=== PATIENT | male | born 1985 | race Caucasian/White ===

== ENCOUNTER 2023-09-03 11:26 | Emergency (ER) | payer OTHER, SELFPAY ==
[2023-09-03 11:31] VITALS: BP 154/96
[2023-09-03 12:10] VITALS: BMI 26.5
--- NOTE | 2023-09-03 14:18 | ED.GENMED ---
History of Present Illness
General
Chief Complaint: Skin Problem
Source: patient
Time Seen by Provider: 09/03/23 13:36
Travel History
Have you had any contact with someone who has COVID-19?: No
Do you have any symptoms of coronavirus? Fever > 100 degrees, chills, cough, shortness of breath, sore throat, loss of taste or smell, muscle aches, or headache?: No
History of Present Illness
History of Present Illness:
37-year-old male presenting emergency department for evaluation of a left-sided facial abscess that has been present for the last 3 days. Patient initially went to urgent care and was prescribed Bactrim which she has been taking and he states that
he felt that symptoms were improving. He saw his primary care provider this morning who recommended patient come to the ER for further evaluation and treatment of the abscess. Patient states his main concern is he has had MRSA in the past that
required admission and IV antibiotics. He denies any fevers, chills, rigors or any other concerns at this time. Patient has been on Bactrim for the 3 days.
Past History
Past History
ED Past Medical History: GERD and Other ( Polysubstance drug abuse)
ED Past Surgical History: Orthopedic (Left wrist surgery)
Social History
Tobacco: Non-smoker
Alcohol: Occasional
Drug: Marijuana and IVDA (Methamphetamines)
Personal: Single
Living: alone
Employment: Employed
Family History
Family History: Other (Noncontributory)
Review of Systems
Review of Systems
All Other Systems: ROS reviewed and negative except as documented in HPI and ROS
Phy Exam
Physical Exam
Physical Exam:
GENERAL: Alert , in no apparent distress
EYE: conjunctiva clear
Head: Normocephalic atraumatic
NECK: Supple, 1-1/2 cm circular abscess towards the body of the mandible on the left. Fluctuant with overlying erythema, very small induration along the outer ring of the abscess
ENT: mmm.
LUNGS: no acute respiratory distress
NEUROLOGICAL: Alert and oriented
SKIN: Warm and dry, skin intact.
MUSCULOSKELETAL: well perfused.
PSYCH: Normal and appropriate interaction.
Scores
Heart Failure Risk
Heart Failure Risk Score: Not Applicable
Heart Score for Chest Pain Patients
STEMI patient?: Not applicable
Withdrawal Assessment of Alcohol
Withdrawal Assessment Completed?: Not applicable
Course
Orders/Labs/Results
Orders:
Orders
09/03/23 14:27
Wound Culture [Wound/Abscess/Other Culture] Urgent
JO Source: Face
Specimen Description: Left
Date Specimen was Collected: 09/03/23
Time Specimen was Collected: 14:26
Vital Signs
Initial and Last Documented VS:
Initial Vital Signs
Temp Pulse Resp BP Pulse Ox
98.2 F 105 18 154/96 100
09/03/23 11:31 09/03/23 11:31 09/03/23 11:31 09/03/23 11:31 09/03/23 11:31
Last Documented Vital Signs
Temp Pulse Resp BP Pulse Ox
98.2 F 105 18 154/96 100
09/03/23 11:31 09/03/23 11:31 09/03/23 11:31 09/03/23 11:31 09/03/23 11:31
Procedures
Incision/Drainage/Joint Aspiration
Left Jaw:
Anethesia: 1% Lidocaine
Preparation: other (Iodine swab)
Type of procedure: incise
Nature of site: abscess
Description of abscess: less than 3cm
Loculations broken up: No
How much fluid was obtained?: large amount
Fluid description: cloudy and purulent
Treatment: left open for drainage
MDM/Problems Addressed
Differential Diagnosis Includes:
Abscess, cellulitis, ingrown hair
MDM/Problems Addressed:
37-year-old male present emergency department for evaluation of an abscess to the left side of his jaw. Has been on Bactrim for the last 3 days. History of MRSA in the past requiring IV antibiotics. Overall patient is immunocompetent, very
well-appearing without any signs of fever or overwhelming infection. Abscess was drained as above. Advised patient continue his Bactrim, warm compresses and gentle soaking while in the shower. Aware of return precautions to ER but otherwise
stable for discharge home and outpatient follow-up as needed.
*Pulse Oximetry
Patient hypoxic: no
*Critical Care Note
Total Time (30-74mins, 75-104mins- exclusive of procedures): Not Applicable
ED Attending Note
-
Portions of this chart may have been created with voice recognition software.� Occasional wrong word or��sound alike� substitutions may have occurred due to the inherent limitations of voice recognition software.
Discharge Plan
Departure
Patient Disposition: Home (Routine Discharge)
Date of Disposition: 09/03/23
Time of Disposition: 14:18
Patient with high blood pressure during this ER visit?: Yes
Discharge Problem:
Abscess of face
Instructions: Skin Abscess
Prescriptions:
No Action
mupirocin 2 % Ointment
1 applic intranasal BID Qty: 15 0RF
Rx Instructions:
take for 2 more days
sulfamethoxazole-trimethoprim 800-160 mg tablet
1 tab PO Q12H Qty: 24 0RF
Rx Instructions:
take through 10/16
sulfamethoxazole-trimethoprim [Bactrim DS] 800-160 mg tablet
1 tab PO BID 10 Days Qty: 19 0RF
Referrals:
Suzie Babcock PA-C [Family Provider] -
Interventions
Interventions:
*Risk Screen - Suicide Last Done: 09/03/23 11:31
*General Assessment Last Done: 09/03/23 11:31
*Neglect/Abuse Screening Last Done: 09/03/23 11:31
*ED COVID-19 Vaccine History Last Done: 09/03/23 11:31
*Nursing Disposition Last Done: 09/03/23 14:29
ED-Skin Assessment Last Done: 09/03/23 12:09
Discharge Date and Time
Discharge Date/Time: 09/03/23 14:35
Print Language: SPANISH
== END 2023-09-03 14:35 | disposition home or self-care (01) ==
LOC: EMR 11:26
PROVIDERS: EMERGENCY PHYSICIAN Emergency Medicine; FAMILY PHYSICIAN Physician Assistant Medical
DX: L02.01 Cutaneous abscess of face (principal); R03.0 Elevated blood-pressure reading, without diagnosis of hypertension; K21.9 Gastro-esophageal reflux disease without esophagitis; Z86.14 Personal history of Methicillin resistant Staphylococcus aureus infection; Z88.0 Allergy status to penicillin
CPT/HCPCS: 10060; 99282; 87070; 87147; 87186; 87205

== ENCOUNTER 2024-11-12 00:02 | Emergency (ER) | payer SELFPAY ==
[2024-11-12] VITALS (7 sets, daily range): BP systolic 97–137; BP diastolic 67–78; BMI 26.8
[2024-11-12] MEDS: DILAUDID 1 MG IV (03:01)
[2024-11-12] MEDS: NSS 1000 IV (03:03)
[2024-11-12] MEDS: ADACEL 0.5 ML IM (03:15)
[2024-11-12 03:47] LABS: Hematocrit 44.0 % (39.0-52.0); Hemoglobin 14.9 g/dL (13.0-18.0); Mean Corp Hgb Conc. 33.9 g/dL (33.0-37.0); Mean Corpuscular Volume 86.8 fL (80.0-94.0); Nucleated Red Blood Cells % 0 % (-); Platelet Count 294 10^3/uL (130-400); Red Cell Dist. Width 13.2 % (11.5-14.5)
[2024-11-12 04:07] LABS: ALT (SGPT) 25 U/L (0-50); AST (SGOT) 26 U/L (17-59); Albumin 4.1 g/dl (3.5-5.0); Alkaline Phosphatase 57 U/L (38-126); Blood Urea Nitrogen 19 mg/dl (9-20); Calcium 9.5 mg/dl (8.4-10.2); Carbon Dioxide 28 mmol/L (22-30); Chloride 109 mmol/L (98-107); Estimated Creatinine Clearance > 125 ml/min; Glucose 118 mg/dl (70-99); Potassium 3.9 mmol/L (3.5-5.1); Sodium 140 mmol/L (135-145); Total Protein 6.9 g/dl (6.3-8.2); eGFR > 60.00
[2024-11-12] MEDS: DILAUDID 0.5 MG IV (06:10)
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
== END 2024-11-12 07:55 | disposition home or self-care (01) ==
LOC: EMR 00:02
PROVIDERS: EMERGENCY PHYSICIAN Emergency Medicine
DX: S52.591A Other fractures of lower end of right radius, initial encounter for closed fracture (principal); S16.1XXA Strain of muscle, fascia and tendon at neck level, initial encounter; S93.401A Sprain of unspecified ligament of right ankle, initial encounter; S90.01XA Contusion of right ankle, initial encounter; S90.31XA Contusion of right foot, initial encounter; S40.211A Abrasion of right shoulder, initial encounter; S50.311A Abrasion of right elbow, initial encounter; S30.810A Abrasion of lower back and pelvis, initial encounter; S70.211A Abrasion, right hip, initial encounter; S60.811A Abrasion of right wrist, initial encounter; M25.512 Pain in left shoulder; M25.511 Pain in right shoulder; V20.09XA Other motorcycle driver injured in collision with pedestrian or animal in nontraffic accident, initial encounter; Y92.410 Unspecified street and highway as the place of occurrence of the external cause; Z23 Encounter for immunization; K21.9 Gastro-esophageal reflux disease without esophagitis; Z86.14 Personal history of Methicillin resistant Staphylococcus aureus infection; Z88.0 Allergy status to penicillin
CPT/HCPCS: 99285; 96361; 90471; 96374; 96376; 29125; 70450; 71260; 72125; 73030; 73080; 73110; 73610; 73630; 74177; 80053; 85025; 90715; Q9967